=== PATIENT | female | born 1960 | race Hispanic/Latino ===

== ENCOUNTER → 2021-09-16 | Outpatient (CLI) | payer OTHER | END | disposition home or self-care (01) | LOC: RAH 10:44 | PROVIDERS: ATTEND Neuromusculoskeletal Medicine & OMM | DX: M47.816 Spondylosis without myelopathy or radiculopathy, lumbar region (principal) | CPT/HCPCS: 72148 ==

== ENCOUNTER → 2021-10-13 | Outpatient (CLI) | payer OTHER | END | disposition home or self-care (01) | LOC: RAH 09:21 | PROVIDERS: ATTEND Family Medicine | DX: M54.30 Sciatica, unspecified side (principal); M47.816 Spondylosis without myelopathy or radiculopathy, lumbar region | CPT/HCPCS: 72100 ==

== ENCOUNTER 2025-01-22 10:13 | Day surgery (SDC) | payer OTHER, MEDICARE ==
[~2025-01-22] VITALS: Ht 172.7 cm; Wt 69.4 kg
[2025-01-22] VITALS (11 sets, daily range): BP systolic 108–151; BP diastolic 47–80; PULSE 55–77; RESP 15–19; TEMP 97–97.8
[~2025-01-22 10:13] MED LIST: ACET-2743 PO; ALPR0.5T8 PO; ASCO500C18 PO; ATOR20TA65 PO; CETI10TA87 PO; CHOL100046 PO; GABA300C PO; IBUP-2070 PO; LOSA50TA64 PO; MAGN250T35 PO; METO-391 PO; MULT-1247 PO; PREM625 PO
[2025-01-22] MEDS: 0.9%NACL 1000ML 1,000 ML IV ONE (11:51)
[2025-01-22] MEDS ORDERED: ondanSETRON 4MG INJ ONE (11:59)
[2025-01-22] MEDS ORDERED: proPOFol 10 MG/ML 20ML VIAL IV ONE ×2 (11:59→12:32)
== END 2025-01-22 13:37 | disposition home or self-care (01) ==
LOC: DAH 10:13 → ENDO 10:13
PROVIDERS: ATTEND Internal Medicine Gastroenterology
DX: R10.13 Epigastric pain (principal); K29.70 Gastritis, unspecified, without bleeding; B96.81 Helicobacter pylori [H. pylori] as the cause of diseases classified elsewhere; K21.00 Gastro-esophageal reflux disease with esophagitis, without bleeding; K44.9 Diaphragmatic hernia without obstruction or gangrene; R68.81 Early satiety; R63.4 Abnormal weight loss; R10.816 Epigastric abdominal tenderness; I10 Essential (primary) hypertension; E78.5 Hyperlipidemia, unspecified; F41.9 Anxiety disorder, unspecified; Z20.822 Contact with and (suspected) exposure to COVID-19; Z90.49 Acquired absence of other specified parts of digestive tract; Z90.710 Acquired absence of both cervix and uterus; Z80.0 Family history of malignant neoplasm of digestive organs; Z79.899 Other long term (current) drug therapy
CPT/HCPCS: 43239; 00731; 88305; 88312; J7030; J2704 ×2; J2405; A4620; A4215 ×2; A4223; A4222; A4221; A4663; A4606; J3490